=== PATIENT | male | born 1980 | race Caucasian/White ===

== ENCOUNTER 2018-03-04 06:05 | Emergency (ER) | payer SELFPAY ==
[2018-03-04 06:05] VITALS: BP 129/94; PULSE 86; RESP 16; TEMP 36.2; O2SAT 97; BMI 23.1
--- NOTE | 2018-03-04 06:51 | ED.VISSUMM ---
- ER Visit Summary Date of Service: 03/04/18 Chief Complaint: Redness right arm History of Present Illness: The patient is a 38 M with no primary care physician. Patient reports that approximately 1 week ago he noticed pain in his right axilla. States that yesterday he has redness on the right arm that is streaking up into his axilla. He reports he is a dull pain is 5 out of 10 at worst and 2 out of 10 currently. Is worsened by touching it. Is relieved by nothing. He denies any known trauma. He denies any fever or chills. He does report these had night sweats for the past week. Patient reports that they got a kitten approximately 1 week ago. He denies any known bite or scratch. Physical Examination: Vitals: Stable. Afebrile. General: Well-nourished and well-developed. Head: Normocephalic atraumatic. Neck: Supple, no lymphadenopathy. No JVD. Nontender. Cardiovascular: Regular rate and rhythm. No murmurs. Respiratory: No respiratory distress. Clear to auscultation bilaterally. Abdominal: Soft, nontender, nondistended, normal bowel sounds. No guarding, rebound, or peritoneal signs. Back: Nontender. Extremities: Proximally 1 cm freely mobile enlarged lymph node in the right axilla. There is very minimal erythema to the dorsum of his proximal right forearm. There is an erythematous area that is approximately 3 cm in width that extends up the antecubital fossa and up the medial side of his arm to his axilla. This does not look typical of cellulitis with lymphangitic spread. There is no induration or fluctuance to suggest abscess. Skin: Normal color, no rash. Neurologic: Alert and oriented ?3. Cranial nerves II through XII are intact. Normal strength and sensation. Psych: Normal affect. Emergency Department Course and Treatment: We discussed the patient the diagnosis. Would like to be placed on antibiotics. Is given a dose of Zithromax here. Did discuss them that this may come from fleas from the cat and that it should be treated as well. Treatment Plan: Patient will be discharged with a Z-Kurtis instructed to follow-up with [facility] in 1 week if not improving. Return to the emergency department for any worsening symptoms. Disposition: To home in improved and stable condition. Impression: 1. Right axillary lymphadenopathy. This note was generated with [employer] dictation software. It may contain incorrect words, spelling, and punctuation that were not noted in review of the chart prior to signing ED Disposition - Plan for ED Patient: Disposition: Home or Assisted Living Chief Complaint: Cellulitis Prescriptions: Azithromycin [Zithromax Z-Kurtis] 250 mg PO UD #1 box Referrals: Helen Morocho [NON-STAFF] - 1 Week if not improving
[2018-03-04] MEDS: Azithromycin 250 MG Tablet 500 MG PO (06:57)
[2018-03-04 07:02] VITALS: BP 129/94; PULSE 86; RESP 16; O2SAT 96
== END 2018-03-04 07:06 | disposition home or self-care (01) ==
LOC: ED 07:03
PROVIDERS: Emergency Provider Emergency Medicine
DX: R59.1 Generalized enlarged lymph nodes (principal); R05 Cough; R21 Rash and other nonspecific skin eruption; E03.9 Hypothyroidism, unspecified
CPT/HCPCS: 99283

== ENCOUNTER → 2019-05-24 14:41 | Outpatient (CLI) | payer SELFPAY ==
[2019-05-24 15:38] LABS: Calcium,Total 8.1 mg/dL (8.5-10.1)
== END ==
LOC: LABSPEC 14:46
DX: E83.51 Hypocalcemia (principal); R53.83 Other fatigue
CPT/HCPCS: 82310

== ENCOUNTER 2020-08-05 08:08 | Emergency (ER) | payer SELFPAY ==
[2020-08-05 08:09] VITALS: BP 133/84; PULSE 102; RESP 16; TEMP 36.3; O2SAT 98; BMI 26.9
--- NOTE | 2020-08-05 08:22 | ED.VIS.GEN ---
History of Present Illness Chief Complaint: Lower Extremity Injury Informant: Patient Narrative: 40-year-old male with no significant past medical history presents with concern for left hip pain. States it began approximately 4 to 5 weeks ago. States it is aching and worse with movement. Denies any numbness or tingling. Denies any trauma. Was seen by chiropractor 2 weeks ago where he received x-rays which were negative. Patient did have some relief following his adjustment but now is having worsening pain. Denies any fever or chills. Denies any overlying skin changes. Past Medical History - Allergies and Home Meds Allergies/Adverse Reactions: Allergies No Known Allergies Allergy (Verified 03/04/18 06:09) Primary Care Physician: Care Physician,No Primary [Primary Care Provider] - Past Medical History: None Surgical History: no surgical history Lives: With Family Smoking Status: Former smoker Alcohol: None Drugs: None Review of Systems General: Denies: Chills, Fever, Sweats Eyes: Denies: Visual changes - bilaterally, Diplopia ENT: Denies: Rhinorrhea, Sore throat Cardiovascular: Denies: Chest pain, Palpitations Respiratory: Denies: Dyspnea, Cough, Dyspnea on exertion Gastrointestinal: Denies: Abdominal pain, Nausea, Vomiting, Diarrhea, Melena, Hematochezia Genitourinary: Denies: Dysuria, Hematuria, Frequency Musculoskeletal: Reports: Arthralgias. Denies: Back pain, Extremity Pain Skin: Denies: Rash, Wounds Neurological: Denies: Headache, Weakness, Numbness Physical Exam Vital Signs/Narrative: Vital Signs Temp Pulse Resp BP Pulse Ox 08/05/20 08:09 97.4 F L 102 H 16 133/84 H 98 General: Well nourished, Well developed, No Acute Distress Head: Normocephalic, Atraumatic Eyes: Perrl, EOMI ENT: Moist mucous membranes, No rhinorrhea Neck: Supple, Nontender Cardiovascular: Regular rate, Regular rhythm, No murmurs Respiratory: No distress, CTA bilaterally, Chest nontender Abdomen: Soft, Nontender, Nondistended, Normal bowel sounds Back: Nontender, Normal Inspection Extremities: Nontender, No edema, - - Full ROM of the left hip. Pain with loading the joint. No overlying skin changes. Skin: Normal color, No rash Neurological: Alert, Oriented x3, Cranial nerves II-XII grossly intact, Normal Strength, Normal Sensation Psychological: Normal affect, Normal Mood Diagnostic/Tx/Re-eval - Medical Decision Making Patient appears well nontoxic. Vital signs within normal limits. Full range of motion. Low concern for septic arthritis. Patient will be given intramuscular Toradol and Kenalog. Given orthopedic follow-up. Asked to return for new or worsening symptoms. Patient agreeable and discharged home in stable condition. Impression: 1. Left hip pain ED Disposition - Plan for ED Patient: Disposition: Home or Assisted Living Instructions: ED Sprain Hip Prescriptions: Naproxen [Naprosyn] 500 mg PO BID #14 tab Prescription Printed Referrals: Mahamed Cabrera DO [STAFF PHYSICIAN] - 5-7 Days
[2020-08-05] MEDS: Triamcinolone Acetonide 40 MG/ML Vial IM (08:33)
[2020-08-05] MEDS: Ketorolac 15 MG/ML Vial IM (08:33)
[2020-08-05 08:50] VITALS: BP 139/88; PULSE 110; RESP 16; O2SAT 97
== END 2020-08-05 08:50 | disposition home or self-care (01) ==
PROVIDERS: Emergency Provider Emergency Medicine
DX: M25.552 Pain in left hip (principal); Z87.891 Personal history of nicotine dependence
CPT/HCPCS: 96372; 99281; 99283

== ENCOUNTER 2022-03-04 13:02 | Emergency (ER) | payer SELFPAY ==
[2022-03-04 13:03] VITALS: BP 121/86; PULSE 96; RESP 18; TEMP 37; O2SAT 100; BMI 25.7
--- NOTE | 2022-03-04 13:21 | RAD_ITS ---
STUDY: X-RAY - RIGHT HAND REASON FOR EXAM: Male, 42 years old. Trauma to right thumb TECHNIQUE: 3 view(s) of the hand. COMPARISON: None. FINDINGS: Normal radiocarpal articulation. Normal distal radioulnar joint. Normal visualized carpal bones. Normal carpal articulations Normal carpometacarpal articulation of the thumb. Normal second through fifth carpometacarpal joints. Normal metacarpi. Normal metacarpophalangeal joint of the thumb. Normal interphalangeal joint of the thumb. Normal proximal and distal phalanges of the thumb. Normal metacarpophalangeal joints of the second through fifth fingers. Normal proximal and distal interphalangeal joints of the second through fifth fingers. Normal phalanges of the second through fifth fingers. There is a 5.5 mm x 1 mm metallic density in the radial aspect of the soft tissues overlying the middle phalanx of the third digit. RAD/Hand Min 3 Views IMPRESSION: 5.5 mm x 1 mm metallic foreign body in the radial aspect of the soft tissues overlying the middle phalanx of the third digit. Electronically Signed: Aleksandar Sue MD at 13:42 EDT ,
--- NOTE | 2022-03-04 13:26 | EDS_ITS ---
HPI History of Present Illness Chief Complaint: Upper Extremity Injury Detail of Chief Complaint: Right thumb injury Informant: patient Occured/Mechanism Mechanism/Context: Yes injury and Yes blunt trauma Onset/Context/Timing Onset: Today and Hours Context: Sudden Onset Timing: Continuous Quality of Pain: Sharp Current Severity: Moderate Maximum Severity: Moderate Associated Symptoms Associated Symptoms: Negative for Parasthesia, Weakness and Loss of Funtion Narrative Narrative: 42-year-old [id number] male. Was laying brick at his home when a pile of bricks fell onto his right hand. Complaining of right thumb pain. He has had broken bones in his right hand before. No surgery. Denies any other injuries. This was at his own home it is not Worker's Comp. Prior similar symptoms: Yes Recent Illness/Hospitalization: No PFSH PFSH Home Medications levothyroxine 200 mcg PO DAILY 01/16/17 [History Last Taken 08/05/20] naproxen 500 mg PO BID #14 tab 08/05/20 [Rx Last Taken Unknown] Allergy/AdvReac Type Severity Reaction Status Date / Time No Known Allergies Allergy Verified 03/04/22 13:04 Surgical History (Updated 03/04/22 @ 13:41 by Viviane Hill) H/O thyroidectomy Social History Smoking Status: Former smoker ROS ROS ED ROS Narrative Denies recent illness. Review of Systems ROS Unobtainable: Denies due to encephalopathy Constitutional Constitutional ED: Denies fever(s) ENT ENT ED: Denies ear pain Cardiovascular Cardiovascular: Denies chest pain Respiratory/Chest Respiratory/Chest: Denies cough or dyspnea Gastrointestinal Gastrointestinal: Denies abdominal pain, diarrhea, nausea or vomiting Genitourinary Genitourinary ED: Denies dysuria Musculoskeletal Musculoskeletal: Denies myalgias or neck pain Integumentary Denies abscess or rash Neurologic Neurologic: Denies headache(s) Psychiatric Psychiatric: Denies depression Endocrine Endocrinology: Denies polyuria Hematologic/Lymphatic Hematologic/Lymphatic: Denies easy bruising Allergic/Immunologic Allergic/Immunologic ED: Denies urticaria EXAM Physical Exam Narrative Exam Narrative: 42-year-old male no acute distress. H EENT exam unremarkable. Lungs are clear. Heart regular rhythm no murmur. Chest were nontender. Abdomen soft nontender. Moving all 4 extremities. Neurovascular intact. His right thumb has tenderness along the base or metacarpal of the right thumb. He has limited flexion he has full extension. Other digits of right hand are nontender wrist is nontender. Const Vital Signs: 03/04/22 13:03 Temperature 98.6 F Temperature Source Temporal Pulse Rate 96 Respiratory Rate 18 Blood Pressure 121/86 H Blood Pressure Mean 97 Pulse Ox 100 Oxygen Delivery Method Room Air Positive well nourished and well developed; Negative for obese, cachectic, contractures or unkempt General Appearance ED: well developed and NAD; Negative for unkempt, cachectic, contractures, cyanotic or diaphoretic Nutritional Appearance: Negative for cachectic or obese HEENT Reports moist mucous membranes normocephalic and atraumatic Eyes PERRL and EOMs intact bilaterally Neck full ROM and supple General: Negative for tenderness Chest Wall inspection of chest normal and palpation of chest normal Resp normal respiratory effort and clear to auscultation bilaterally Effort and Inspection: Negative for pain with movement Auscultation: Negative for rales, rhonchi or wheezes Cardio regular rate, regular rhythm, S1 normal heart sound, S2 normal heart sound and no murmurs GI non-tender, non-distended and no masses Auscultation: normoactive bowel sounds Palpation: soft; Negative for tender, guarding or rebound tenderness present Back/Spine no CVA tenderness General Back: Negative for CVA tenderness Cervical Spine: Negative for cervical spine tenderness Thoracic Spine / Upper Back: Negative for thoracic spinal tenderness Lumbar Spine / Lower Back: Negative for lumbar spinal tenderness Extremity normal to inspection and full ROM Extremity Narrative: Except, right thumb tender. Decreased flexion due to pain. Mild swelling. No deformity. General Extremety ED: Negative for edema General Extremity: Negative for edema Neuro oriented x3 and moves all extremities Sensorium / Orientation: alert, oriented to person, oriented to place and oriented to time Motor Exam: strength 5/5 throughout Psych mental status grossly normal Appearance: Negative for unkempt Mood & Affect: Negative for depressed Skin Lesions: no lesions Rashes: no rashes Trauma: no lacerations or abrasions MDM MDM MDM Narrative Medical decision making narrative: Right hand injury. X-ray being obtained. Repeat exam doing well at 2:10 PM. Discharged home. Ice. Elevate anti- inflammatories. Follow-up if not improving that reexamined. Radiography Diagnostic Testing: Right hand x-ray 3 views interpreted by myself and the radiologist shows no fracture. No dislocation. There is a metallic foreign body along the mid phalanx of the right long finger but that did not occur today. I will discuss have the patient go over the x-ray with him. Discharge Plan Triage Chief Complaint: Upper Extremity Injury ED Provider: Gene Piña Dx/Rx/DC Orders Clinical Impression: Contusion of right thumb Instructions: ED Finger Contusion Prescriptions: No Action levothyroxine 100 MCG tablet 200 mcg PO DAILY RF: 0 naproxen 500 MG tablet 500 mg PO BID Qty: 14 RF: 0 Primary Care Provider: Care Physician,No Primary Referrals: Ronal Ladd MD [STAFF PHYSICIAN] - 1 Week if not improving Care Physician,No Primary [Primary Care Provider] - Activity Restrictions/Additional Instructions: Ice and elevate your right hand to decrease pain and swelling. Motrin for pain and swelling. Follow-up to have his reevaluate if not improving in a week. There is an incidental finding of a metallic foreign body in your right little long finger. If that would ever get infected it would need to come out but at this time you do not need to do anything about that. Disposition Disposition: Home, Self Care
[2022-03-04 14:16] VITALS: RESP 14
== END 2022-03-04 14:17 | disposition home or self-care (01) ==
PROVIDERS: Emergency Provider Emergency Medicine; Visit Provider Emergency Medicine
DX: S60.011A Contusion of right thumb without damage to nail, initial encounter (principal); Z87.891 Personal history of nicotine dependence; W19.XXXA Unspecified fall, initial encounter
CPT/HCPCS: 73130; 99282

== ENCOUNTER 2022-05-28 19:03 | Emergency (ER) | payer SELFPAY ==
[2022-05-28 19:04] VITALS: BP 148/102; PULSE 109; RESP 16; TEMP 36.6; O2SAT 99; BMI 25.7
--- NOTE | 2022-05-28 19:19 | EDS_ITS ---
HPI History of Present Illness Chief Complaint: Cellulitis Detail of Chief Complaint: Rash to left upper arm Informant: patient Narrative Narrative: Patient presents emergency department with a rash to the upper arm that he noticed today. Patient states that he has been working on a tattoo that he is doing himself on his upper arm he thinks he might be having an infection. Patient also had the area covered with some tape and near the armpit of the left upper arm he noticed some bruising and he was worried about a blood clot. Patient also has had some discoloration to his both lower extremities where they went to the beach recently and he abraded his right ankle against some coral. Patient denies any fevers. He denies chest pain. Denies shortness of breath. Prior similar symptoms: No PFSH PFSH Home Medications levothyroxine 100 mcg tablet 200 mcg PO DAILY 01/16/17 [History Last Taken 08/05/20] naproxen 500 mg tablet 500 mg PO BID #14 tabs 08/05/20 [Rx Last Taken Unknown] cephalexin 500 mg capsule 500 mg PO Q6 #40 CAPSULES 05/28/22 [Rx Last Taken Unknown] Allergy/AdvReac Type Severity Reaction Status Date / Time No Known Allergies Allergy Verified 05/28/22 19:06 Surgical History H/O thyroidectomy Social History Smoking Status: Former smoker ROS ROS ED Review of Systems ROS Unobtainable: other Constitutional Constitutional ED: Reports lethargy; Denies chills, fever(s), sweats or weight loss Eyes Eyes: Denies blurry vision, change in vision or diplopia ENT ENT ED: Denies rhinorrhea or sore throat Cardiovascular Cardiovascular: Reports chest pain and racing heartbeat; Denies orthopnea Respiratory/Chest Respiratory/Chest: Reports dyspnea and dyspnea on exertion; Denies cough, orthopnea or sputum Gastrointestinal Gastrointestinal: Denies abdominal pain, diarrhea, nausea or vomiting Genitourinary Genitourinary ED: Denies dysuria, hematuria or urinary frequency Musculoskeletal Musculoskeletal: Denies arthralgias, back pain, myalgias or neck pain Integumentary Reports Abrasions and rash; Denies abscess Neurologic Neurologic: Denies headache(s) or weakness Psychiatric Psychiatric: Denies anxiety, depression or suicidal thoughts Endocrine Endocrinology: Denies polydipsia, polyphagia or polyuria Hematologic/Lymphatic Hematologic/Lymphatic: Denies easy bleeding, easy bruising or lymphadenopathy Allergic/Immunologic Allergic/Immunologic ED: Denies mouth swelling, tongue swelling or urticaria EXAM Physical Exam Const Vital Signs: 05/28/22 19:04 Temperature 98 F Temperature Source Temporal Pulse Rate 109 H Respiratory Rate 16 Blood Pressure 148/102 H Blood Pressure Mean 117 Pulse Ox 99 Oxygen Delivery Method Room Air Positive well nourished and well developed General Appearance ED: well developed and NAD HEENT Reports TM's clear and moist mucous membranes normocephalic and atraumatic; Negative for trauma or tenderness Tympanic Membrane ED: Yes TM's clear Eyes PERRL and EOMs intact bilaterally General Eye ED: Negative for pale conjunctiva or scleral icterus Neck no lymphadenopathy, supple and no JVD General: Negative for tenderness Chest Wall inspection of chest normal and palpation of chest normal Chest: Negative for tenderness Resp normal respiratory effort and clear to auscultation bilaterally Effort and Inspection: Negative for respiratory distress or pain with movement Auscultation: Negative for rhonchi, wheezes or diminished lung sounds Cardio regular rate, regular rhythm, S1 normal heart sound, S2 normal heart sound and no murmurs Peripheral Pulses: pulses 2+ throughout GI normal to inspection, nondistended, normoactive bowel sounds, soft to palpation, non-tender, non-distended and no masses Back/Spine no CVA tenderness and no thoracic nor lumbar tenderness Extremity normal to inspection General Extremety ED: Negative for edema General Extremity: Negative for edema Neuro oriented x3, CN's II-XII intact bilaterally, no sensory deficits noted and gait normal Sensorium / Orientation: awake, alert, oriented to person, oriented to place and oriented to time Motor Exam: strength 5/5 throughout and strength abnormal Psych mental status grossly normal Skin Skin Narrative: Evaluation left upper arm does reveal a tattoo with some of the color that is raised and bubbled and some faint erythema noted. Patient also has an area of slight ecchymosis near the armpit of the left upper arm inner aspect that measures approximately 2 cm in diameter. There is no edema of the extremity. No ropes or cords palpated. Evaluation of the right ankle does reveal some pancho t ecchymosis and bruising over the medial aspect of the ankle with some excoriations and abrasions to the lateral malleolus. There are no cellulitic changes noted. MDM MDM MDM Narrative Medical decision making narrative: I suspect patient is having a cellulitis of the left upper extremity related to the tattoo. Patient will be started on Keflex. I do not feel patient has any evidence of DVT in the upper or lower extremities. Patient will be given referral to primary care physician for follow-up in 3 to 5 days. He is to return if increased redness, swelling, fever, chest pain, shortness of breath, or condition should worsen anyway. Discharge Plan Triage Chief Complaint: Cellulitis ED Provider: Reagan Guillory Dx/Rx/DC Orders Clinical Impression: Cellulitis, Abrasion Instructions: ED Cellulitis Prescriptions: New cephalexin [cephalexin] 500 mg capsule 500 mg PO Q6 Qty: 40 0RF No Action levothyroxine 100 MCG tablet 200 mcg PO DAILY naproxen 500 MG tablet 500 mg PO BID Qty: 14 0RF Primary Care Provider: Care Physician,No Primary Referrals: Hakan Sheridan MD [Med Staff - Active Staff] - 3-5 Days Care Physician,No Primary [Primary Care Provider] - Disposition Disposition: Home, Self Care
[2022-05-28] MEDS: Cephalexin 250 MG Capsule 500 MG PO (19:25)
== END 2022-05-28 19:28 | disposition home or self-care (01) ==
PROVIDERS: Emergency Provider Emergency Medicine; Visit Provider Emergency Medicine
DX: L03.114 Cellulitis of left upper limb (principal); Z87.891 Personal history of nicotine dependence
CPT/HCPCS: 99283

== ENCOUNTER → 2022-10-17 00:16 | Outpatient (REF) | payer SELFPAY | END | disposition home or self-care (01) | LOC: EDREF 00:16 | DX: Z00.00 Encounter for general adult medical examination without abnormal findings (principal) ==

== ENCOUNTER 2025-03-19 20:10 | Emergency (ER) | payer MEDICAID, SELFPAY ==
[2025-03-19 20:10] VITALS: BP 136/86; PULSE 97; RESP 16; TEMP 36.4; O2SAT 100
--- NOTE | 2025-03-19 20:40 | EDS_ITS ---
HPI History of Present Illness Chief Complaint: Lower Extremity Injury Informant: patient Narrative Narrative: Presents concerns of right toe infection. He states he walks with sandals does construction callus buildup on the toe. He shaved it away. States there is swelling more lateral to the toenail. Yesterday he cut it open states was draining pus. Today there is additional drainage. No fevers. No diabetes history. Denies history of similar. No antibiotic allergies. Prior similar symptoms: No PFSH PFSH Home Medications ?Medication ?Instructions ?Recorded ?Last Taken ?Type levothyroxine 100 mcg tablet 300 mcg PO DAILY 01/16/17 08/05/20 History cephalexin 500 mg capsule 500 mg PO Q12 #10 CAPSULES 0 03/19/25 Unknown Rx Allergy/AdvReac Type Severity Reaction Status Date / Time No Known Allergies Allergy Verified 03/19/25 20:15 Surgical History H/O thyroidectomy Social History Smoking Status: Former smoker ROS ROS ED Constitutional Constitutional ED: Denies fever(s) Respiratory/Chest Respiratory/Chest: Denies cough Gastrointestinal Gastrointestinal: Denies diarrhea or vomiting Musculoskeletal Musculoskeletal: Denies none Integumentary Reports wounds; Denies rash Neurologic Neurologic: Denies weakness EXAM Physical Exam Const Vital Signs: 03/19/25 20:10 Temperature 97.6 F L Temperature Source Temporal Pulse Rate 97 Respiratory Rate 16 Blood Pressure 136/86 H Blood Pressure Mean 102 Pulse Ox 100 Oxygen Delivery Method Room Air Positive well nourished and well developed General Appearance ED: well developed HEENT normocephalic and atraumatic Eyes General Eye ED: Yes normal appearance of both eyes Neck full ROM Resp normal respiratory effort and normal air movement Cardio regular rate and regular rhythm GI soft to palpation Extremity full ROM Extremity Narrative: Right lower extremity: Second toe examination lateral to the nailbed noted skin removal, there is no streaking up the toes no active drainage nontender. Darkening pigmentation more distal wound edge. No foreign body noted. No fluctuance. Neuro oriented x3 Skin no rashes or lesions noted and no wounds MDM MDM MDM Narrative Medical decision making narrative: Interventions / MDM: Differential diagnosis: Skin callus, paronychia Diagnosis considered but do not suspect: N/A My EKG interpretation: N/A Imaging independently reviewed and interpreted by myself: N/A External documents reviewed: N/A Test considered but not ordered:N/A ED course: Patient describes skin callus that he shaved away with pressure injury. He reports drainage after opening the skin yesterday. Discussed likely paronychia for which she has drained. He states continued drainage this morning. There is no streaking. I discussed wound care with the patient. Discussed avoid picking at the skin at this time. He will be placed on Keflex twice a day for 5 days he is referred to podiatry. All questions were answered. Re-evaluation: stable Disposition discussed with patient/family/significant other: Patient Case discussed with consulting clinician: N/A This note was generated with [employer] dictation software. It may contain incorrect words, spelling, and punctuation that were not noted in checking the note before signing. Discharge Plan Triage Chief Complaint: Lower Extremity Injury ED Provider: Shayan Fisher Dx/Rx/DC Orders Clinical Impression: Acute paronychia of toe of right foot, Skin callus Instructions: Treating Corns and Calluses, ED Paronychia of the Finger or Toe Prescriptions: New cephalexin 500 mg capsule 500 mg PO Q12 Qty: 10 0RF No Action levothyroxine 100 MCG tablet 300 mcg PO DAILY Primary Care Provider: Care Physician,No Primary Referrals: Fredy Pichardo DPM [Med Staff - Active Staff] - 1-2 Weeks Care Physician,No Primary [Primary Care Provider] - Activity Restrictions/Additional Instructions: Normal wound care normal soap and water. Avoid picking at it. Take antibiotic as prescribed. Follow-up with podiatry. Print Language: Par[place]ayan Disposition Disposition: Home, Self Care
[2025-03-19 20:41] VITALS: BP 136/86; PULSE 97; RESP 16; TEMP 36.4; O2SAT 100
== END 2025-03-19 20:52 | disposition home or self-care (01) ==
LOC: ED 20:51
PROVIDERS: Emergency Provider Emergency Medicine; Visit Provider Emergency Medicine
DX: L03.031 Cellulitis of right toe (principal); L84 Corns and callosities; Z87.891 Personal history of nicotine dependence
CPT/HCPCS: 99282